=== PATIENT | female | born 1945 | race Caucasian/White ===

== ENCOUNTER → 2018-06-13 | Outpatient (CLI) | payer OTHER ==
[2014-01-14 13:59] VITALS: BMI 24.7
[~2018-06-13] MED LIST: ACE500 PO; ALBU8.5H12 IH; ASPI-1441 PO; ATOR20TA65 PO; AZI250 PO; BEN100 PO; BIMA2.5D5 OU; BIMOD OU; CEF300 PO; CEFU250 PO; COS10OD OU; DORZ10DR27 OP; GLIP-152 PO; GUALA600 PO; HCTZ25 PO; HYDR12.561 PO; LEV2I *; LEVO500T83 PO; LEVO50TA80 PO; LEVO75TA68 PO; LEVO88TA45 PO; LISI5TAB25 PO; LOR5/325 PO; MELO-149 PO; MET500 PO; NAPR375T44 PO; NITR25CA2 PO; ONDA4TAB9 PO; PIO15 PO
--- NOTE | 2018-06-13 13:14 | RADIOLOGY IMAGING REPORT ---
FACILITY: [facility] [place] PATIENT NAME: Kaylah Rea : 1945 MR: [id number] V: [id number] EXAM DATE: ORDERING PHYSICIAN: RAY SUÁREZ TECHNOLOGIST: [place] [facility] [place] Kaylah Rea : 1945 Visit/Account:[id number] Date of Sevice: 06/13/2018 EXAMINATION: CT head without IV contrast HISTORY: Hit head yesterday. COMPARISON: CT head from 02/14/2016 and brain MRI from 04/17/2016. TECHNIQUE: Contiguous axial images were obtained from the skull base to the vertex without intraven ous contrast. Sagittal and coronal reformatted images are also submitted. One of the following dose optimization techniques was utilized in the performance of this exam: Autom ated exposure control; adjustment of the mA and/or kV according to the patient's size; or use of an i terative reconstruction technique. Specific details can be referenced in the facility's radiology C T exam operational policy. FINDINGS: Brain volume: Mild generalized atrophy with associated concordant prominence of the ventricular syst em. Ventricles: Normal. Acute ischemic changes: None. Hemorrhage: No acute intracranial hemorrhage. Masses/edema: Hyperdense lesions in the right medial temporal lobe and right parietal lobe are uncha nged. There is no adjacent edema. Lazo-white: Negative. White matter: Normal. Vessels: Calcified plaque of the vertebral arteries and carotid siphons at the skull base. Extra-axial: Negative. Calvarium/scalp: Left parietal scalp contusion without acute fracture. Skull base/visualized face: Negative. Visualized sinuses/orbits: Mucosal thickening in the right ethmoid air cells is new. Mild nasal sept al deviation to the left. Previous lens surgery bilaterally. IMPRESSION: 1. Left parietal scalp contusion without acute fracture or hemorrhage. No CT evidence of acute infar ct. 2. Hyperdense lesions in the right temporal and parietal lobes are unchanged, and are compatible with benign cavernous malformations. Report Dictated By: Katy Farnsworth MD at 06/13/2018 1:01 PM Report E-Signed By: Katy Farnsworth MD at 06/13/2018 1:09 PM WSN:[id number]
== END ==
LOC: CT 12:05
PROVIDERS: ATTEND Physician Assistant
DX: S09.90XA Unspecified injury of head, initial encounter (principal)
CPT/HCPCS: 70450